=== PATIENT | male | born 1945 | race Caucasian/White ===

== ENCOUNTER 2022-05-09 10:02 | Day surgery (SDC) | payer MEDICARE, BC ==
[2022-05-09 10:29] LABS: BILIRUBIN,URINE NEGATIVE (NEGATIVE); GLUCOSE, URINE (UA) NEGATIVE (NEGATIVE); KETONES,URINE (UA) NEGATIVE (NEGATIVE); LEUKOCYTE ESTERASE, URINE NEGATIVE (NEGATIVE); NITRITE,URINE NEGATIVE (NEGATIVE); OCCULT BLOOD,URINE TRACE-INTA (NEGATIVE); PROTEIN,URINE NEGATIVE (NEGATIVE); UROBILINOGEN,URINE 0.2 (NORMAL) E.U./dL (NORMAL)
[2022-05-09 10:31] LABS: BASOPHILS # (AUTO) 0.1 10^3/uL (0.0-0.1); BASOPHILS % (AUTO) 0.5 %; EOSINOPHILS # (AUTO) 0.2 10^3/uL (0.0-0.7); EOSINOPHILS % (AUTO) 1.8 %; HCT - HEMATOCRIT 42.7 % (42.0-52.0); HGB - HEMOGLOBIN 14.2 g/dL (14.0-18.0); LYMPHOCYTES # (AUTO) 1.7 10^3/uL (1.5-3.5); LYMPHOCYTES % (AUTO) 16.5 %; MEAN CORPUSCULAR HEMOGLOBIN 28.9 pg (27.0-31.0); MEAN CORPUSCULAR HGB CONC 33.3 g/dL (32.0-36.0); MEAN CORPUSCULAR VOLUME 86.8 fL (80.0-94.0); MEAN PLATELET VOLUME 9.9 fL (7.4-11.4); MONOCYTES # (AUTO) 0.8 10^3/uL (0.0-1.0); MONOCYTES % (AUTO) 7.6 %; NEUTROPHILS # (AUTO) 7.5 10^3/uL (1.5-6.6); NEUTROPHILS % (AUTO) 73.3 %; PLT - PLATELET COUNT 195 10^3/uL (130-450); RED BLOOD COUNT 4.92 10^6/uL (4.70-6.10); RED CELL DISTRIBUTION WIDTH 12.3 % (12.0-15.0); WHITE BLOOD COUNT 10.2 x10^3/uL (4.8-10.8)
[2022-05-09 10:37] LABS: CLARITY,URINE CLEAR (CLEAR)
[2022-05-09 10:44] LABS: ALBUMIN 4.2 g/dL (3.2-5.5); ALBUMIN/GLOBULIN RATIO 1.2 (1.0-2.2); BILIRUBIN,TOTAL 0.9 mg/dL (0.2-1.0); CALCIUM 9.5 mg/dL (8.5-10.3); CREATININE 0.9 mg/dL (0.6-1.2); POTASSIUM 4.2 mmol/L (3.5-5.0); TOTAL PROTEIN 7.7 g/dL (6.7-8.2)
--- NOTE | 2022-05-09 13:12 | CT Report ---
PROCEDURE: Abdomen/Pelvis WO INDICATIONS: RLQ abd pain TECHNIQUE: Noncontrast 5 mm thick sections acquired from the diaphragms to the symphysis. 5 mm coronal and sagi ttal reformats were then performed. For radiation dose reduction, the following was used: automated exposure control, adjustment of mA and/or kV according to patient size. COMPARISON: None. FINDINGS: Image quality: Excellent. ABDOMEN: Lung bases: Pleural calcifications are noted in posterior lateral left lower lobe. Scattered scarring /atelectasis in bilateral lung bases is also seen. Heart size is mildly enlarged, no pericardial effu alan. Solid organs: Liver and spleen are normal in size. Gallbladder is within normal limits. Pancreas i s normal in contours. No right adrenal nodules. Hypodense nodule in left adrenal gland is seen measu res 9 x 6 mm in size. Kidneys are normal in size, without hydronephrosis or nephrolithiasis. 2.8 cm cyst is seen in lower pole left kidney. Peritoneum and bowel: Enlarged appendix is seen in right lower quadrant abdomen with periappendiceal fat stranding and appendiceal wall thickening. No abscess collection. No free fluid of free air. No b owel obstruction. No stomach or small bowel wall thickening. No gross colonic wall thickening. Mild f ecal stasis throughout the colon is seen. Mild colonic diverticulosis is seen, no colonic wall thicke ronnie or pericolonic fat stranding. Nodes and vessels: No retroperitoneal or mesenteric adenopathy by size criteria. Aorta and inferior vena cava are normal in caliber. Mild to moderate atherosclerotic calcifications in the abdominal a tracey is seen. Miscellaneous: No ventral hernias. PELVIS: Genitourinary: Bladder wall thickness is normal. Miscellaneous: No inguinal hernias or adenopathy. Penile prosthesis reservoir is noted in right low er pelvis. Bones: No suspicious bony lesions. No vertebral body compression fractures. IMPRESSION: 1. Finding is consistent with acute appendicitis. No abscess collection. No signs of perforation. 2. Mild constipation. Colonic diverticulosis without CT evidence of acute diverticulitis. No free flu id of free air. 3. Incidentally noted of small hypodense left adrenal nodule likely representing adrenal adenoma. Reviewed by: Aaron Holm MD on 05/09/2022 1:11 PM PDT Approved by: Aaron Holm MD on 05/09/2022 1:11 PM PDT Station ID: [id number]
--- NOTE | 2022-05-09 13:21 | ED Physician Documentation ---
PD HPI ABD PAIN - Stated complaint Stated Complaint: ABDOMINAL PX - Chief complaint Chief Complaint: Abd Pain - History obtained from History obtained from: Patient - Treatment prior to arrival Treatment prior to arrival: The patient comes to the emergency department chief complaint of increasing right lower quadrant pain for the last 3 days. He states he is here on vacation from [place] and is due to fly back tomorrow. However, the pains been getting worse and he wants to make sure that it is not his appendix before he flies back. He is accompanied by his . Patient denies fevers, chills, or nausea. He states he has been constipated the last few days. Review of Systems Ten Systems: 10 systems reviewed and negative Constitutional: reports: Reviewed and negative Eyes: reports: Reviewed and negative Ears: reports: Reviewed and negative Nose: reports: Reviewed and negative Throat: reports: Reviewed and negative Cardiac: reports: Reviewed and negative Respiratory: reports: Reviewed and negative GI: reports: Abdominal Pain, Constipation : reports: Reviewed and negative Skin: reports: Reviewed and negative Musculoskeletal: reports: Reviewed and negative Neurologic: reports: Reviewed and negative Psychiatric: reports: Reviewed and negative Endocrine: reports: Reviewed and negative Immunocompromised: reports: Reviewed and negative PD PAST MEDICAL HISTORY - Allergies Allergies/Adverse Reactions: Allergies Allergy/AdvReac Type Severity Reaction Status Date / Time No Known Drug Allergies Allergy Verified 05/09/22 10:12 PD ED PE NORMAL - Vitals Vital signs reviewed: Yes - General General: Alert and oriented X 3, No acute distress, Well developed/nourished - HEENT HEENT: Atraumatic, PERRL, EOMI, Moist mucous membranes - Neck Neck: Supple, no meningeal sign - Cardiac Cardiac: RRR, No murmur, Strong equal pulses - Respiratory Respiratory: No respiratory distress, Clear bilaterally - Abdomen Abdomen: Soft, Non distended, Other (Moderate right lower quadrant tenderness, no rebound or guarding.) - Derm Derm: Normal color, Warm and dry, No rash - Extremities Extremities: No deformity, No edema - Neuro Neuro: Alert and oriented X 3, 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, Normal speech - Psych Psych: Normal mood, Normal affect Results - Vitals Vitals: Vital Signs - 24 hr 05/09/22 05/09/22 05/09/22 10:13 12:28 14:00 Temperature 37.0 C Heart Rate 68 64 65 Respiratory 19 18 19 Rate Blood Pressure 132/70 H 113/70 134/102 H O2 Saturation 100 96 97 Oxygen O2 Source Room air - Labs Labs: Laboratory Tests 05/09/22 05/09/22 05/09/22 10:21 10:28 10:28 WBC 10.2 RBC 4.92 Hgb 14.2 Hct 42.7 MCV 86.8 MCH 28.9 MCHC 33.3 RDW 12.3 Plt Count 195 MPV 9.9 Neut # (Auto) 7.5 H Lymph # (Auto) 1.7 [place] # (Auto) 0.8 Eos # (Auto) 0.2 Baso # (Auto) 0.1 Absolute Nucleated RBC 0.00 Nucleated RBC % 0.0 Sodium 138 Potassium 4.2 Chloride 99 L Carbon Dioxide 29 Anion Gap 10.0 BUN 14 Creatinine 0.9 Estimated GFR (MDRD) 82 L Glucose 116 H Calcium 9.5 Total Bilirubin 0.9 AST 54 H ALT 31 Alkaline Phosphatase 66 Total Protein 7.7 Albumin 4.2 Globulin 3.5 Albumin/Globulin Ratio 1.2 Lipase 30 Urine Color YELLOW Urine Clarity CLEAR Urine pH 6.0 Ur Specific [place] <=1.005 Urine Protein NEGATIVE Urine Glucose (UA) NEGATIVE Urine Ketones NEGATIVE Urine Occult Blood TRACE-INTA Urine Nitrite NEGATIVE Urine Bilirubin NEGATIVE Urine Urobilinogen 0.2 (NORMAL) Ur Leukocyte Esterase NEGATIVE Ur Microscopic Review NOT INDICATED Urine Culture Comments NOT INDICATED - Rads (name of study) CT abdomen pelvis Radiology: Final report received, EMP read indepedently, See rad report (Enlarged, thickened appendix with stranding. No fluid collection. Consistent with acute appendicitis.) PD MEDICAL DECISION MAKING - ED course Complexity details: reviewed results, re-evaluated patient, considered differential, d/w patient, d/w family ED course: Patient was worked up with labs and CT scan of the abdomen and pelvis. Labs were unremarkable. CT showed appendicitis. I spoke with Dr. Godwin who is on- call for surgery and she agreed to take patient to the OR. Patient was informed. Departure - Departure Disposition: ED Transfer to [facility] Clinical Impression: Appendicitis Qualifiers: Appendicitis type: acute appendicitis Acute appendicitis type: unspecified acute appendicitis type Qualified Code(s): K35.80 - Unspecified acute appendicitis Condition: Serious Discharge Date/Time: 05/09/22 14:15
[2022-05-09] MEDS ORDERED: BUPIVACAINE 0.5% PF 30 ML VIAL ONE (13:49)
[2022-05-09] MEDS ORDERED: LIDOCAINE 2%-EPI 1:100000 20 ML MDV ONE (13:49)
--- NOTE | 2022-05-09 13:51 | HISTORY & PHYSICAL EXAMINATION ---
HPI - Admitted From Admitted from: ED - History Obtained From History obtained from: Patient, Family Exam limitations: No limitations - History of Present Illness Pain/Problem Location Description: Right lower quadrant pain Severity at the worst: reports: Moderate Pain Quality: reports: Aching, Cramping Context-Pain started w/: reports: Rest Timing: reports: Gradual onset Duration: reports: Days: (1) Improved with: reports: Nothing Worsened by: reports: Eating, Movement HPI Comment/Other: Pleasant and remarkably healthy 76-year-old gentleman here visiting family from [place]. He reports he began having abdominal discomfort last evening. He was not able to eat supper due to feeling poorly. He presented to the emergency room this morning with his and was found by the emergency room staff to have acute appendicitis documented on CT. I have been called for definitive management. Social & Family Hx - Social History Does the pt smoke?: No Meds/Allgy - Allergies Allergies/Adverse Reactions: Allergies Allergy/AdvReac Type Severity Reaction Status Date / Time No Known Drug Allergies Allergy Verified 05/09/22 10:12 Review of Systems - Gastrointestinal Gastrointestinal: reports: Abdominal pain Exam - Vital Signs Reviewed Vital Signs: Yes Vital Signs: Vital Signs x48h Temp Pulse Resp BP Pulse Ox 05/09/22 12:28 64 18 113/70 96 05/09/22 10:13 37.0 C 68 19 132/70 H 100 - Physical Exam General Appearance: positive: No acute distress, Alert Eyes Bilateral: positive: Normal inspection, PERRL, EOMI ENT: positive: ENT inspection nml, Pharynx nml Neck: positive: Nml inspection, No JVD Respiratory: positive: Chest non-tender, No respiratory distress, Breath sounds nml Cardiovascular: positive: Regular rate & rhythm, No murmur Peripheral Pulses: positive: 1+ Abdomen: positive: Nml bowel sounds, Tenderness, Guarding, Rebound Back: negative: CVA tenderness (R), CVA tenderness (L) Skin: positive: Color nml, No rash Extremities: positive: Non-tender, Full ROM Neurologic/Psychiatric: positive: Oriented x3, CN's nml (2-12) Results - Lab Results Fish Bones: 05/09/22 10:28 05/09/22 10:28 Other Lab Results: Lab Results x24hrs 05/09/22 05/09/22 05/09/22 Range/Units 10:28 10:28 10:21 WBC 10.2 (4.8-10.8) x10^3/uL RBC 4.92 (4.70-6.10) 10^6/uL Hgb 14.2 (14.0-18.0) g/dL Hct 42.7 (42.0-52.0) % MCV 86.8 (80.0-94.0) fL MCH 28.9 (27.0-31.0) pg MCHC 33.3 (32.0-36.0) g/dL RDW 12.3 (12.0-15.0) % Plt Count 195 (130-450) 10^3/uL MPV 9.9 (7.4-11.4) fL Neut # (Auto) 7.5 H (1.5-6.6) 10^3/uL Lymph # (Auto) 1.7 (1.5-3.5) 10^3/uL [place] # (Auto) 0.8 (0.0-1.0) 10^3/uL Eos # (Auto) 0.2 (0.0-0.7) 10^3/uL Baso # (Auto) 0.1 (0.0-0.1) 10^3/uL Absolute Nucleated RBC 0.00 x10^3/uL Nucleated RBC % 0.0 /100WBC Sodium 138 (135-145) mmol/L Potassium 4.2 (3.5-5.0) mmol/L Chloride 99 L (101-111) mmol/L Carbon Dioxide 29 (21-32) mmol/L Anion Gap 10.0 (6-13) BUN 14 (6-20) mg/dL Creatinine 0.9 (0.6-1.2) mg/dL Estimated GFR (MDRD) 82 L (>89) Glucose 116 H (70-100) mg/dL Calcium 9.5 (8.5-10.3) mg/dL Total Bilirubin 0.9 (0.2-1.0) mg/dL AST 54 H (10-42) IU/L ALT 31 (10-60) IU/L Alkaline Phosphatase 66 (42-121) IU/L Total Protein 7.7 (6.7-8.2) g/dL Albumin 4.2 (3.2-5.5) g/dL Globulin 3.5 (2.1-4.2) g/dL Albumin/Globulin Ratio 1.2 (1.0-2.2) Lipase 30 (22-51) U/L Urine Color YELLOW Urine Clarity CLEAR (CLEAR) Urine pH 6.0 (5.0-7.5) PH Ur Specific [place] <=1.005 (1.002-1.030) Urine Protein NEGATIVE (NEGATIVE) mg/dL Urine Glucose (UA) NEGATIVE (NEGATIVE) mg/dL Urine Ketones NEGATIVE (NEGATIVE) mg/dL Urine Occult Blood TRACE-INTA (NEGATIVE) Urine Nitrite NEGATIVE (NEGATIVE) Urine Bilirubin NEGATIVE (NEGATIVE) Urine Urobilinogen 0.2 (NORMAL) (NORMAL) E.U./dL Ur Leukocyte Esterase NEGATIVE (NEGATIVE) Ur Microscopic Review NOT INDICATED Urine Culture Comments NOT INDICATED - Diagnostic Imaging Results Diagnostic Imaging Results Comments: CT is consistent with acute appendicitis without abscess or perforation. Impression/Plan - Problem List Problem List: Acute appendicitis in the setting of a healthy 76-year-old gentleman [place]. We have discussed the risk, benefits, and alternatives to appendectomy and the patient is expressed verbal and written consent to proceed today.
--- NOTE | 2022-05-09 14:01 | ANESTHESIA ---
Pre-Anesthesia VS, & Labs - Diagnosis appendicitis - Procedure laparoscopic appendectomy Vital Signs: Temp Pulse Resp BP Pulse Ox 37.0 C 64 18 113/70 96 05/09/22 10:13 05/09/22 12:28 05/09/22 12:28 05/09/22 12:05/09/22 12:28 Height: 5 ft 6 in Weight (kg): 77.111 kg Body Mass Index: 27.4 BMI Classification: Overweight - NPO >8 hours - Lab Results Current Lab Results: Laboratory Tests 05/09/22 10:28: Sodium 138, Potassium 4.2, Chloride 99 L, Carbon Dioxide 29, Anion Gap 10.0, BUN 14, Creatinine 0.9, Estimated GFR (MDRD) 82 L, Glucose 116 H , Calcium 9.5, Total Bilirubin 0.9, AST 54 H, ALT 31, Alkaline Phosphatase 66, Total Protein 7.7, Albumin 4.2, Globulin 3.5, Albumin/Globulin Ratio 1.2, Lipase 30 05/09/22 10:28: WBC 10.2, RBC 4.92, Hgb 14.2, Hct 42.7, MCV 86.8, MCH 28.9, MCHC 33.3, RDW 12.3, Plt Count 195, MPV 9.9, Neut # (Auto) 7.5 H, Lymph # (Auto) 1.7, [place] # (Auto) 0.8, Eos # (Auto) 0.2, Baso # (Auto) 0.1, Absolute Nucleated RBC 0.00, Nucleated RBC % 0.0 Fish Bones: 05/09/22 10:28 05/09/22 10:28 Home Medications and Allergies Allergies/Adverse Reactions: Allergies Allergy/AdvReac Type Severity Reaction Status Date / Time No Known Drug Allergies Allergy Verified 05/09/22 10:12 Anes History & Medical History - Anesthetic History Anesthesia Complications: reports: No previous complications Family history of Anesthesia Complications: Denies Family history of Malignant Hyperthermia: Denies - Medical History Cardiovascular: reports: Hypertension Pulmonary: reports: None, Other (residual cough from "covid") Urinary: reports: None Neuro: reports: None Musculoskeletal: reports: Osteoarthritis Exam General: Alert, Oriented x3, Cooperative Dental: Other (multiple implants and gold crowns t/o) Mouth Openin Fingerbreadth Neck Mobility: Normal Mallampati classification: II Respiratory: Normal breath sounds Cardiovascular: Regular rate Neurological: Normal speech Mental/Cognitive Status: Alert/Oriented X3, Normal for patient Cognitive Status: Within normal limits Plan Anesthesia Type: General Consent for Procedure(s) Verified and Reviewed: Yes Code Status: Attempt Resuscitation ASA classification: 2-Mild systemic disease Is this case an emergency?: Yes
[2022-05-09] MEDS ORDERED: fentaNYL 100 MCG/2 ML VIAL IVP PRN (14:02)
[2022-05-09] MEDS ORDERED: HYDROmorphone 0.5 MG/0.5 ML SYRINGE IVP PRN (14:02)
[2022-05-09] MEDS ORDERED: ONDANSETRON 4 MG/2 ML VIAL IVP PRN ×2 (14:02→15:13)
[2022-05-09] MEDS ORDERED: METOCLOPRAMIDE 10 MG/2 ML VIAL IVP PRN (14:02)
[2022-05-09] MEDS ORDERED: MORPHINE 2 MG/ML CARPUJECT IVP PRN (14:02)
[2022-05-09] MEDS ORDERED: NALOXONE 0.4 MG/ML VIAL IVP PRN (14:02)
[2022-05-09] MEDS ORDERED: ePHEDrine 50 MG/ML VIAL IVP PRN (14:02)
[2022-05-09] MEDS ORDERED: ATROPINE ABBOJECT 1 MG/10 ML SYRINGE IVP PRN (14:02)
[2022-05-09] MEDS ORDERED: ROCURONIUM 50 MG/5 ML VIAL ONE (14:11)
[2022-05-09] MEDS ORDERED: LIDOCAINE-MPF 2% 5 ML VIAL ONE (14:11)
[2022-05-09] MEDS ORDERED: DEXAMETHASONE 4 MG/ML VIAL ONE (14:11)
[2022-05-09] MEDS ORDERED: PROPOFOL 200 MG/20 ML VIAL IVP ONE (14:11)
[2022-05-09] MEDS ORDERED: CEFAZOLIN SODIUM IN 0.9 % NACL 0 GM/0 ML BAG IV ONE (14:48)
[2022-05-09] MEDS ORDERED: LIDOCAINE 1%-EPI 1:100000 20 ML MDV SUBQ ONE ×2 (14:49)
[2022-05-09] MEDS ORDERED: BUPIVACAINE 0.5% PF 30 ML VIAL SUBQ ONE ×2 (14:49)
[2022-05-09] MEDS ORDERED: PIPERACILLIN/TAZOBACTAM 3.375 GM in SODIUM CHLORIDE 0.9% MINIBAG 100 ML IV SCH ×4 (15:00)
[2022-05-09] MEDS ORDERED: LACTATED RINGERS 1,000 ML IV SCH (15:00)
[2022-05-09 15:01] LABS: B. PARAPERTUSSIS- RESP PCR PAN NOT DETECTED; B. PERTUSSIS- RESP PCR PANEL NOT DETECTED; C. PNEUMONIAE- RESP PCR PANEL NOT DETECTED; CORONAVIRUS 229E-RESP PCR NOT DETECTED; CORONAVIRUS HKU1-RESP PCR NOT DETECTED; CORONAVIRUS NL63-RESP PCR NOT DETECTED; CORONAVIRUS OC43-RESP PCR NOT DETECTED; HUMAN METAPNEUMOVIRUS NOT DETECTED; INFLUENZA A- RESP PCR PANEL NOT DETECTED; INFLUENZA B - RESP PCR PANEL NOT DETECTED; M. PNEUMONIAE- RESP PCR PANEL NOT DETECTED; PARAINFLUENZA VIRUS 1 NOT DETECTED; PARAINFLUENZA VIRUS 2 NOT DETECTED; PARAINFLUENZA VIRUS 3 NOT DETECTED; PARAINFLUENZA VIRUS 4 NOT DETECTED; RHINOVIRUS/ENTEROVIRUS NOT DETECTED; RSV- RESP PCR PANEL NOT DETECTED; SARS-CoV-2 -RESP PCR PANEL NOT DETECTED
--- NOTE | 2022-05-09 15:09 | OPERATIVE REPORT ---
Operative Report - General Procedure Date: 05/09/22 Planned Procedure: Laparoscopic appendectomy Pre-Op Diagnosis: Acute appendicitis Procedure Performed: Laparoscopic appendectomy Post Op Diagnosis: Acute, necrotic appendicitis without obvious rupture - Procedure Note Primary Surgeon: Citlali Anesthesia Provider: MEGAN Schulte Anesthesia Technique: General ET tube, Local Pathology: Appendix to pathology in formalin Estimated Blood Loss (mL): 5 Findings: Acute appendicitis with a necrotic portion toward the tip. No obvious rupture. Complications: None apparent - Other Other Information/Narrative: After obtaining informed consent, the patient is brought to the operating room and placed in the supine position on the operating table. Following successful induction of general endotracheal anesthesia, appropriate padding of all bony prominences, and placement of appropriate monitors, the abdomen was prepped and draped in the standard surgical fashion. A timeout was held per scope protocol. All elements of the surgical safety checklist were followed before, during, and after the procedure. Following infiltration with local anesthetic to create a field block, an incisio n was created inferior to the umbilicus and carried down through the skin and subcutaneous tissue to reveal the fascia below. 2-0 Vicryl retention sutures were placed on either side of the midline and the abdomen was entered under direct vision using a 15 blade scalpel. A 10 mm blunt Don balloon trocar was placed in the abdominal cavity and it was insufflated to 15 mmHg pressure. The patient was placed in Trendelenburg position with the left side rotated toward the floor. The camera was placed in the abdominal cavity and we immediately visualized the cecum in the right lower quadrant. It was rotated medially to reveal a somewhat dilated and turgid appendix. The appendix was grasped and elevated revealing its attachment to the cecum. A window was created in the mesoappendix at this location. A laparoscopic stapling device was used to ligate the appendix and liberated from its attachment to the cecum. An additional load of the device were used to divide its mesentery.The appendix was placed in an Endo Catch bag and removed via the umbilical port with a camera in the epigastric position. The camera was replaced in the operative site examined. It was irrigated with warm saline solution and aspirated free of all fluid and particulate matter. The table was flattened and the abdomen evaluated once again. The trochars were removed under direct vision and abdomen was mable ufflated. The umbilical incision was closed with interrupted Vicryl suture and Monocryl stitches were placed in the skin. All sponge, needles, and instrument counts were correct at the conclusion of the case. The patient was allowed to wake from anesthesia without difficulty and taken to the postanesthesia care unit in good condition.
[2022-05-09] MEDS ORDERED: SUGAMMADEX 200 MG/2 ML VIAL IVP ONE (15:10)
[2022-05-09] MEDS ORDERED: ACETAMINOPHEN 325 MG TABLET PO PRN (15:13)
[2022-05-09] MEDS ORDERED: IBUPROFEN 600 MG TABLET PO PRN (15:13)
[2022-05-09] MEDS ORDERED: oxyCODONE 5 MG TABLET PO PRN (15:13)
[2022-05-09] MEDS ORDERED: LACTATED RINGERS 600 ML IV ONE (15:13)
--- NOTE | 2022-05-09 15:47 | ANESTHESIA POST OP EVALUATION ---
Anesthesia Post Eval - Post Anesthesia Eval Vitals: Last Vital Signs Temp 36.7 C 05/09/22 15:45 Pulse 68 05/09/22 15:45 Resp 19 05/09/22 15:45 BP 135/69 H 05/09/22 15:45 Pulse Ox 96 05/09/22 15:45 CV Function Including HR & BP: Stable Pain Control: Satisfactory Nausea & Vomiting: Negative Mental Status: Baseline Respiratory Status: Airway Patent Hydration Status: Satisfactory Anesthesia Complications: None
[2022-05-09 16:39] VITALS: BP 132/84
== END 2022-05-09 13:46 | disposition home or self-care (01) ==
LOC: ED 10:02 → SDS 13:45
PROVIDERS: ATTEND Surgery
PROC: 0DTJ4ZZ Resection of Appendix, Percutaneous Endoscopic Approach (ICD-10-PCS; principal; 2022-05-09 13:30)
DX: K35.890 Other acute appendicitis without perforation or gangrene (principal); Z20.822 Contact with and (suspected) exposure to COVID-19
CPT/HCPCS: 36415; 44970; 74176; 80053; 81003; 83690; 85025; 87633; 99283; 99285; J7120; 81001; 87086